=== PATIENT | female | born 1980 | race Caucasian/White ===

== ENCOUNTER 2023-03-19 19:56 | Emergency (ER) | payer OTHER ==
[~2023-03-19] VITALS: Ht 152.4 cm; Wt 95.2 kg
[2023-03-19 23:12] VITALS: BP 134/80
[2023-03-19] MEDS ORDERED: CLONAZEPAM2 M1 (23:13)
[2023-03-19] MEDS ORDERED: ESOMEPRAZOLE MA20 MG (23:14)
[2023-03-19] MEDS ORDERED: TOPIRAMATE100 MG (23:14)
[2023-03-19] MEDS ORDERED: DEPAKOTE ER250 MG (23:14)
[2023-03-19] MEDS ORDERED: CLARITIN10 M2 (23:14)
[2023-03-19] MEDS ORDERED: ATIVAN1 MG (23:15)
[2023-03-19] MEDS ORDERED: RISPERDAL2 MG (23:15)
== END 2023-03-19 22:25 | disposition home or self-care (01) ==
LOC: ED 19:56
DX: Z04.41 Encounter for examination and observation following alleged adult rape (principal)
CPT/HCPCS: 84703; 99283; A9270